=== PATIENT | female | born 1975 | race Caucasian/White ===

== ENCOUNTER 2016-08-17 17:53 | Emergency (ER) | payer SELFPAY ==
[~2016-08-17 17:53] MED LIST: ABILIFY5 MG PO; ADULT LOW DOSE81 MG PO; ALEVE220 M2 PO; ALEVE220 MG PO; ALIVE; AMBIEN10 MG PO; AMITIZA8 MCG PO; ASPIRIN81 M1 PO; ATARAX25 MG PO; ATIVAN1 M2 PO; AUGMENTIN 875-11 TAB PO; AVELOX400 MG PO; BENADRYL25 M3 PO; BENADRYL50 MG; BENTYL20 MG PO; CARAFATE1 G PO; CARAFATE1 G2 PO; CIPRO500 MG PO; CITRATE OF MAG300 ML PO; CLEOCIN150 MG/CA1 PO; COLACE100 MG PO; CYANOCOBALAMIN; DEPAKOTE ER500 MG PO; DULCOLAX5 MG PO; EPITOL PO; FLAGYL500 MG PO; FLEXERIL10 MG PO; HALDOL; IBUPROFEN200 MG PO; LAMICTAL25 MG PO; MAALOX ADVANCE1 EACH PO; MACROBID100 MG/CA1 PO; MELATONIN3 M4 PO; MELATONIN5 M7; MOTRIN600 MG PO; NEURONTIN100 MG PO; NEURONTIN300 MG; NEURONTIN300 MG PO; NORCO 10/325 TA1 TAB PO; NORCO 5/325 TAB1 TAB PO; NORTRIPTYLINE H25 M1 PO; OMEPRAZOLE20 M3 PO; PAXIL; PAXIL CR25 MG PO; PAXIL20 MG PO; PAXIL30 MG PO; PAXIL40 MG PO; PERCOCET 5/3251 TAB PO; PHENERGAN25 M4 RC; PRAVACHOL20 MG PO; PRILOSEC OTC20 MG PO; PRILOSEC40 MG; PRILOSEC40 MG PO; PYRIDIUM200 MG PO; REGLAN10 M2 PO; SENOKOT8.6 MG PO; TRAMADOL HCL50 MG PO; TRAZODONE HCL150 MG PO; TRAZODONE100 MG PO; TYLENOL EXTRA500 MG PO; TYLENOL PM EX-1 EAC4 PO; TYLENOL325 MG PO; TYLENOL500 MG PO; VISTARIL25 MG PO; VISTARIL50 MG PO; WELLBUTRIN SR150 MG; WELLBUTRIN XL150 MG; WELLBUTRIN XL150 MG PO; WELLBUTRIN100 M1 PO; Z-QUIL PO; ZANTAC150 MG PO; ZOFRAN ODT4 MG/UDTAB PO; ZOFRAN4 MG PO; ZOLPIDEM TARTRA10 MG PO; ZZZQUIL; [UNRECOGNIZED DRUG - OTHER]
[2016-08-17 19:01] LABS: URINE APPEARANCE HAZY; URINE BILIRUBIN NEGATIVE (NEG); URINE BLOOD MODERATE (NEG); URINE COLOR YELLOW; URINE GLUCOSE (UA) NEGATIVE (NEG); URINE KETONE SMALL (NEG); URINE LEUKOCYTE ESTERASE POSITIVE (NEG); URINE NITRITE NEGATIVE (NEG); URINE PROTEIN SMALL (NEG)
[2016-08-17 19:02] LABS: BASO % 0.5 % (0-2); EOS % 0.7 % (0-7); HGB-HEMOGLOBIN 14.1 gm/dl (12.0-15.5); LYMPH % 34.9 % (20-45); LYMPH ABSOLUTE COUNT 1.5 tho/cmm (0.8-4.5); MCH (MEAN CORPUSCULAR HGB) 31.3 pg (28.0-32.0); MCHC MEAN CORPUSCULAR HGB CONC 33.6 % (32.0-36.0); MCV (MEAN CELL VOLUME) 93.1 fl (82.0-96.0); MEAN PLATELET VOLUME 11.9 cmc (9.4-12.4); MONO % 6.6 % (0-12); MONOCYTE ABSOLUTE COUNT 0.3 tho/cmm (0.0-1.2); NEUTROPHIL ABSOLUTE COUNT 2.5 tho/cmm (1.6-8.0); NEUTROPHIL-AUTOMATED 2.5 tho/cmm (1.6-8.0); NEUTROPHILS % 57.3 % (40-80); PLATELET COUNT 154 tho/cmm (150-450); RED BLOOD COUNT 4.51 mil/cmm (4.00-5.20); RED CELL DISTRIBUTION WIDTH 13.1 % (12.4-16.4); WHITE BLOOD COUNT 4.4 tho/cmm (4.0-10.0)
[2016-08-17 19:06] LABS: URINE MUCUS 2+
[2016-08-17 19:07] LABS: URINE BACTERIA 2+
[2016-08-17 19:08] LABS: URINE EPITHELIAL CELLS 20-40 /[HPF] (0-10)
[2016-08-17 19:17] LABS: ALB/GLOB RATIO 1.2 (0.8-2.0); ALBUMIN 3.8 g/dl (3.5-5.0); ALKALINE PHOSPHATASE 75 U/L (33-138); ALT/SGPT 16 U/L (12-78); ANION GAP 13 mmol/L (0-20); AST/SGOT 16 U/L (10-40); BILIRUBIN,TOTAL 0.3 mg/dl (0-1.5); BLOOD UREA NITROGEN 22 mg/dl (6-24); CALCIUM 8.7 mg/dl (8.5-10.5); CARBON DIOXIDE-VENOUS 24 mmol/L (22-32); CHLORIDE 107 mmol/l (96-110); CREATININE 1.09 mg/dl (0.50-1.10); GLUCOSE 89 mg/dL (70-110); LIPASE 90 U/L (73-393); SODIUM 140 mmol/L (135-145); eGFR VALUE FOR BLACK 73 mL/Min
[2016-08-17 19:41] LABS: URINE APPEARANCE HAZY; URINE BILIRUBIN NEGATIVE (NEG); URINE BLOOD SMALL (NEG); URINE COLOR YELLOW; URINE GLUCOSE (UA) NEGATIVE (NEG); URINE KETONE SMALL (NEG); URINE LEUKOCYTE ESTERASE POSITIVE (NEG); URINE NITRITE NEGATIVE (NEG); URINE PROTEIN MODERATE (NEG)
[2016-08-17 19:47] LABS: URINE BACTERIA 1+; URINE MUCUS 2+
[2016-08-17] MEDS ORDERED: PROMETHAZINE HC25 M3 PO (20:35)
[2016-08-17] MEDS ORDERED: CARAFATE1 G2 PO (20:35)
[2016-08-17] MEDS ORDERED: OMEPRAZOLE20 M4 PO (20:35)
[2016-11-25] MEDS ORDERED: BENADRYL25 M3 PO (12:08)
== END 2016-08-17 20:44 ==
LOC: EDMED 17:53
PROVIDERS: Emergency Medicine
DX: K29.70 Gastritis, unspecified, without bleeding (principal); Z87.11 Personal history of peptic ulcer disease; Z90.89 Acquired absence of other organs; Z90.49 Acquired absence of other specified parts of digestive tract; Z90.710 Acquired absence of both cervix and uterus; Z88.6 Allergy status to analgesic agent; Z79.899 Other long term (current) drug therapy; F17.210 Nicotine dependence, cigarettes, uncomplicated
CPT/HCPCS: J2550; J7030